=== PATIENT | male | born 1965 | race Caucasian/White ===

== ENCOUNTER 2023-01-18 15:37 | Emergency (ER) | payer MEDICARE, MEDICAID ==
[~2023-01-18] VITALS: Ht 180.3 cm; Wt 79.5 kg
[2023-01-18 16:27] LABS: BASOPHILS # (AUTO) 0.1 X10'3 (0-0.2); BASOPHILS % (AUTO) 0.4 % (0-1); EOSINOPHILS % (AUTO) 0 % (0-6); HEMOGLOBIN 13.9 g/dl (14.0-17.9); LYMPHOCYTES # (AUTO) 2.7 X10'3 (1.1-4.8); LYMPHOCYTES % (AUTO) 13.5 % (21-51); MEAN CORPUSCULAR HEMOGLOBIN 32.6 PG (27.0-31.0); MEAN CORPUSCULAR HGB CONC 34.8 g/dL (33.0-36.5); MEAN CORPUSCULAR VOLUME 93.6 FL (78-98); MEAN PLATELET VOLUME 7.7 FL (7.4-10.4); MONOCYTES # (AUTO) 2.6 X10'3 (0-0.9); MONOCYTES % (AUTO) 13.2 % (2-12); NEUTROPHILS # (AUTO) 14.7 X10'3 (1.8-7.7); NEUTROPHILS % (AUTO) 72.9 % (42-75); PLATELET COUNT 417 X10'3 (140-440); RED BLOOD COUNT 4.27 X10'6 (4.70-6.10); RED CELL DISTRIBUTION WIDTH 13.8 % (11.5-14.5); WHITE BLOOD COUNT 20.1 X10'3 (4.5-11.0)
[2023-01-18 16:43] LABS: ALANINE AMINOTRANSFERASE 17 U/L (12-78); ALBUMIN 3.5 G/DL (3.4-5.0); ALBUMIN/GLOBULIN RATIO 1.2 (1.1-1.5); ALKALINE PHOSPHATASE 53 IU/L (46-116); ANION GAP 11 (8-16); ASPARTATE AMINO TRANSFERASE 8 U/L (10-37); BILIRUBIN,TOTAL 0.6 MG/DL (0.1-1.0); BLOOD UREA NITROGEN 74 MG/DL (7-18); BUN/CREATININE RATIO 63.8 (10.0-20.0); CALCIUM 8.6 MG/DL (8.5-10.1); CHLORIDE 97 MMOL/L (99-107); CREATININE 1.16 MG/DL (0.60-1.10); GLUCOSE 87 MG/DL (70-104); POTASSIUM 3.3 MMOL/L (3.5-5.1); SODIUM 135 MMOL/L (135-145); TOTAL CARBON DIOXIDE 27.1 MMOL/L (24-32); TOTAL PROTEIN 6.4 G/DL (6.4-8.2); eGFR 65 ML/MIN
[2023-01-18 16:48] LABS: TOTAL CELLS COUNTED 100
[2023-01-18 16:49] LABS: PLATELET ESTIMATE NORMAL; POIKILOCYTOSIS FEW
[2023-01-18] MEDS ORDERED: CefTRIAXone/D5W-Rocephin 1gm 50 ML IV ONE (18:10)
[2023-01-18] MEDS ORDERED: normal saline 1000ML IV soln IVB ONE ×2 (18:10)
[2023-01-18 19:05] LABS: D-DIMER 0.31 MG/L FEU (0-0.50)
[2023-01-18] MEDS ORDERED: ondansetron/PF 4mg/2ml inj IV ONE (19:50)
[2023-01-18] MEDS ORDERED: POTASSIUM BICARB 20meq eff tab 20 MEQ TABLET.EFF PO ONE (19:50)
[2023-01-18] MEDS ORDERED: acetaminophen 325mg tablet PO ONE (19:55)
[2023-01-18 20:00] VITALS: O2SAT 100
[2023-01-18] MEDS ORDERED: famotidine/PF 10 mg/ml inj IV ONE (20:10)
[2023-01-18] MEDS ORDERED: pantoprazole 40mg IV 80 MG in normal saline 100ml IV soln 100 ML IV ONE (20:10)
[2023-01-18] MEDS: pantoprazole 40MG/NS 100ML BAG 100 ML IV SCH ×2 (20:40→21:27)
[2023-01-18 21:00] VITALS: BP 123/76; PULSE 104; RESP 13
[2023-01-18 21:19] LABS: CLARITY,URINE CLEAR (Clear); COLOR,URINE YELLOW (Yellow); GLUCOSE, URINE NEGATIVE (Neg); KETONES,URINE NEGATIVE (Neg); LEUKOCYTE ESTERASE ,URINE NEGATIVE (Neg); NITRITES, URINE NEGATIVE (Neg); OCCULT BLOOD,URINE NEGATIVE (Neg); PROTEIN,URINE NEGATIVE (Neg); UROBILINOGEN,URINE 0.2 E.U/dL (0.2-1.0)
[2023-01-18 21:20] LABS: UA COLLECTION TYPE CLN CATCH MIDSTREAM
[2023-01-18] MEDS ORDERED: AZIT-164 PO (21:54)
[2023-01-18 23:06] VITALS: TEMP 98.3
[2023-01-19 08:52] LABS: OCCULT BLOOD STOOL NEGATIVE (Neg)
== END 2023-01-18 23:08 | disposition home or self-care (01) ==
LOC: ER 15:37
DX: R55 Syncope and collapse (principal); J18.8 Other pneumonia, unspecified organism; G89.29 Other chronic pain; Z88.8 Allergy status to other drugs, medicaments and biological substances; Z87.81 Personal history of (healed) traumatic fracture
CPT/HCPCS: 36415; 71045; 80053; 81003; 82272; 83605; 83880; 84145; 84484; 85007; 85025; 85379; 87040; 93005; 96361; 96365; 96366; 96368; 96375; 99285; C9113; J0696; J2405; J3490; J7030; A6258

== ENCOUNTER 2024-04-21 16:00 | Emergency (ER) | payer MEDICARE, MEDICAID ==
[~2024-04-21] VITALS: Ht 172.7 cm; Wt 72.0 kg
[2024-04-21 16:02] VITALS: BP 124/73; PULSE 112; RESP 18; TEMP 99.3; O2SAT 99
== END 2024-04-21 20:05 | disposition left against medical advice (07) ==
LOC: ER 16:01
DX: M79.604 Pain in right leg (principal); Z53.21 Procedure and treatment not carried out due to patient leaving prior to being seen by health care provider